=== PATIENT | male | born 1975 | race African-American/Black ===

== ENCOUNTER 2021-04-07 19:45 | Emergency (ER) | payer SELFPAY ==
[~2021-04-07] VITALS: Ht 180.3 cm; Wt 128.6 kg
[2021-04-07] MEDS ORDERED: ACETAMINOPHEN 325MG TABLET PO ONE (21:30)
[2021-04-07] MEDS ORDERED: KETOROLAC 60MG/2ML VIAL IM ONE (21:30)
[2021-04-07] MEDS ORDERED: LIDO1ADH23 TP (22:25)
[2021-04-07] MEDS ORDERED: ACET-2708 MT (22:25)
[2021-04-07] MEDS ORDERED: IBUP-2028 MT (22:25)
[2021-04-07 22:45] VITALS: BP 180/100
[2021-04-08] MEDS ORDERED: LIDOCAINE 5% PATCH TOP SCH (09:00)
== END 2021-04-07 22:45 | disposition home or self-care (01) ==
LOC: ER 20:41
DX: R51.9 Headache, unspecified (principal); M54.2 Cervicalgia; V49.59XA Passenger injured in collision with other motor vehicles in traffic accident, initial encounter; Y93.89 Activity, other specified; Y92.89 Other specified places as the place of occurrence of the external cause; Y99.8 Other external cause status; I10 Essential (primary) hypertension; Z79.899 Other long term (current) drug therapy
CPT/HCPCS: 93005; 96372; 99283; J1885